=== PATIENT | male | born 1945 | race Caucasian/White ===

== ENCOUNTER 2021-03-21 23:50 | Inpatient (IN) | payer OTHER ==
[~2021-03-21] VITALS: Ht 175.3 cm; Wt 74.1 kg
[2021-03-21 23:51] VITALS: BP 132/77
[2021-03-22] MEDS ORDERED: ALBUTEROL INHALER (00:03)
[2021-03-22] MEDS ORDERED: ZESTRIL5 MG PO (00:05)
[2021-03-22] MEDS ORDERED: BENADRYL25 MG PO (00:05)
[2021-03-22] MEDS ORDERED: METFORMIN PO (00:05)
[2021-03-22] MEDS ORDERED: PREVACID30 MG PO (00:06)
[2021-03-22] MEDS ORDERED: LOPRESSOR50 MG PO (00:06)
[2021-03-22] MEDS ORDERED: TRELEGY ELLIPT1 EACH INH (00:07)
[2021-03-22] MEDS ORDERED: ACETAMINOPHEN325 MG PO (00:07)
[2021-03-22] MEDS ORDERED: ULTRAM50 MG PO (00:07)
[2021-03-22 00:22] LABS: ABSOLUTE NEUTROPHILS 15.5 thou/uL (1.4-8.2); BASOPHILS 1.2 % (0.0-2.0); EOSINOPHILS 1.3 % (0.0-3.0); HEMATOCRIT 44.8 % (42.0-52.0); HEMOGLOBIN 14.9 gm/dL (14.0-18.0); LYMPHOCYTES 9.6 % (24.0-44.0); MCH 31.5 pg (26.0-34.0); MCHC 33.3 g/dL (28.0-37.0); MCV 94.8 fL (80.0-100.0); MONOCYTES 8.5 % (1.0-8.0); PLATELET COUNT 307 thou/uL (150-400); POLYS 79.4 % (36.0-66.0); RBC 4.73 mil/uL (4.50-6.00); RDW 15.2 % (10.5-14.5); WBC 19.5 thou/uL (4.0-11.0)
[2021-03-22 00:25] LABS: CREATININE 1.1 mg/dL (0.7-1.3); POTASSIUM 4.6 mmol/L (3.5-5.1)
[2021-03-22] MEDS ORDERED: METFORMIN HCL500 M3 PO (01:45)
[2021-03-22] MEDS ORDERED: ALBUTEROL2.5 MG/3 M INH (01:46)
[2021-03-22] MEDS ORDERED: PROAIR HFA8.5 GM INH (01:46)
[2021-03-22] MEDS ORDERED: METHOTREXATE 22.5 M1 PO (01:47)
[2021-03-22 02:52] VITALS: BP 130/61
[2021-03-22 03:20] VITALS: BP 115/66
[2021-03-22 05:55] LABS: HEMATOCRIT 39.6 % (42.0-52.0); HEMOGLOBIN 13.8 gm/dL (14.0-18.0); MCH 32.9 pg (26.0-34.0); MCHC 34.8 g/dL (28.0-37.0); MCV 94.7 fL (80.0-100.0); RBC 4.18 mil/uL (4.50-6.00); RDW 14.8 % (10.5-14.5); WBC 19.1 thou/uL (4.0-11.0)
[2021-03-22 06:15] LABS: CALCIUM 8.2 mg/dL (8.5-10.1); CREATININE 1.1 mg/dL (0.7-1.3); POTASSIUM 4.5 mmol/L (3.5-5.1)
--- NOTE | 2021-03-22 06:26 | NUR ---
PT WAS ADMITTED TO THE UNIT FROM THE ER IN A STABLE CONDITION.PT ALERT, INPATIENT AND GRUMPY ON ADMIT.ADMISSION HX,EDUCATION AND ASSESSMENT COMPLETED.PT UP TO THE TOILET WITH SBA,SOB WITH EXERTION NOTED.PT [place],HAS MARIELY HEARING AID IN PLACE.PT EDUCATED TO USE THE URINAL AT BEDSIDE.PT ON IVF AND IV ABX.CALL LIGHT WITHIN REACH.
[2021-03-22 07:40] VITALS: BP 105/50
--- NOTE | 2021-03-22 10:45 | NUR ---
Assumed care of pt at 0700. Pt a&ox4. IVF and IV antibiotics infusing. 2L O2. SBA to the toilet. Lung sounds diminished. Denies pain. SOB with activity. Call light within reach. Fall precautions in place. Will continue to monitor.
[2021-03-22 16:40] VITALS: BP 110/56
[2021-03-22 21:20] VITALS: BP 105/59
--- NOTE | 2021-03-23 04:17 | NUR ---
ASSUMED PT CARE AT 1900.PT DENIED PAIN SO FAR.PT UP WITH ASSIST/CANE TO THE TOILET,SOB NOTED.PT ON 2LNC.PT ENCOURAGED TO USE HIS INCENTIVE SPIROMETER.PT [place],BILHEARING AID IN PLACE.PT ABLE TO MAKE HIS NEEDS KNOWN.CALL LIGHT WITHIN REACH.
--- NOTE | 2021-03-23 08:16 | EKG ---
[address] [place] [address] ELECTROCARDIOGRAM REPORT Name: ANIBAL BANDA Room #: 444-P ADM IN M.R.#: [id number] Admission: 03/22/21 Attend Phys: Carlos Latham MD Discharge: Date of : 49 Report #: [id number] [facility] ED Test Date: 2021-03-22 Test Time: 00:35:37 Pat Name: ANIBAL BANDA Department: Room: 444 Gender: M Frit Maker: ortiz lezama : 1945 Requested By: Zain Leach Order Number: [id number] MD: Alberto Mello Measurements Intervals [place] Rate: 107 P: 58 AR: 119 QRS: 60 QRSD: 93 T: 247 QT: 299 QTc: 399 Interpretive Statements Sinus tachycardia Borderline repol abnormality, diffuse leads No previous ECG available for comparison Electronically Signed On 03-23-2021 8:16:34 CDT by Alberto Mello [email or web address] <ELECTRONICALLY SIGNED> By: Alberto Mello MD, [facility] 03/23/21 0816 0035 0035 Alberto Mello MD, FACC /EPI
[2021-03-23 08:47] VITALS: BP 132/66
--- NOTE | 2021-03-23 10:43 | NUR ---
Assumed care of pt at 0700. Pt a&ox4. Denies pain. Dimished lung sounds. IV antibiotics infusing. SBA to the toilet. SOA w/activity. 2L O2. Call light within reach. Pt calls appropriately. Will continue to monitr.
[2021-03-23 19:13] VITALS: BP 134/65
--- NOTE | 2021-03-23 22:22 | NUR ---
ASSUMED CARE OF PT AT 1915. PT IS A&OX4. IS ON 2L OF O2/NC INTERMITTENT NEEDED. HAS SOB WITH EXERTION. PT DENIES CHEST PAIN OR GERNARALIZED. IS STABLE. CONTINUES ON IV STEROIDS & ABT. IS UP WITH STANDBY ASSIST, GB, CANE. PT HAS STEADY GAIT. FALL PRECAUTIONS & HOURLY ROUNDING CONTINUED THIS SHIFT. LABS & VITALS REVIEWED. PT IS CURRENTLY ASLEEP. CALL LIGHT WITHIN REACH. WILL CONTINUE TO MONITOR.
[2021-03-24 04:13] VITALS: BP 117/75
[2021-03-24 06:43] LABS: ABSOLUTE NEUTROPHILS 12.3 thou/uL (1.4-8.2); BASOPHILS 0.1 % (0.0-2.0); HEMATOCRIT 35.9 % (42.0-52.0); HEMOGLOBIN 12.3 gm/dL (14.0-18.0); MCH 32.4 pg (26.0-34.0); MCHC 34.2 g/dL (28.0-37.0); MCV 94.6 fL (80.0-100.0); PLATELET COUNT 235 thou/uL (150-400); POLYS 90.9 % (36.0-66.0); WBC 13.6 thou/uL (4.0-11.0)
[2021-03-24 07:50] VITALS: BP 122/66
--- NOTE | 2021-03-24 09:27 | NUR ---
Assumed care of pt at 0700. Pt a&ox4. Denies pain. IV antibiotic infusing. Will try to wean off O2 if saturation above 92%. Call light within reach. Will continue to monitor.
[2021-03-24 15:30] VITALS: BP 137/70
--- NOTE | 2021-03-24 17:20 | NUR ---
Chart reviewed and case discussed with the care team. Pt comes from home with his . He is normally indep using a cane. His pcp is Dr. Zackery Ramirez. He has health ins in place for f/u care. The pt is up with sba and his cane with steady gait. He is being treated for pneumonia/copd exac and weaning off o2. Likely dc 1-2 days with outpt followup. cm will follow along should dc needs arise.
[2021-03-24 20:43] VITALS: BP 146/71
--- NOTE | 2021-03-25 00:30 | NUR ---
PT ALERT AND ORIENTED X 4. UP AD AIDAN IN ROOM. PT STATES HE IS COUGHING UP GREEN SPUTUM. NONE OBSERVED BY NURSE. PT DENIES PAIN OR DISCOMFORT. PT APPEARS TO BE SLEEPING ON HOURLY ROUNDS.
[2021-03-25 01:55] LABS: HEMATOCRIT 36.2 % (42.0-52.0); HEMOGLOBIN 12.6 gm/dL (14.0-18.0); MCHC 34.9 g/dL (28.0-37.0); MCV 94.7 fL (80.0-100.0); RBC 3.82 mil/uL (4.50-6.00); WBC 10.9 thou/uL (4.0-11.0)
[2021-03-25 02:01] LABS: CALCIUM 8.7 mg/dL (8.5-10.1); CREATININE 1.1 mg/dL (0.7-1.3); POTASSIUM 4.3 mmol/L (3.5-5.1)
[2021-03-25 07:57] VITALS: BP 142/69
--- NOTE | 2021-03-25 11:56 | NUR ---
ASSUMED PT CARE AROUND 07. PT ALERT X ORIENTED X 4. 2L/O2/PRN DEPENDING ON PT COMFORT. PER DR. OJEDA'S ORDER, WEANING PT FROM 2L/O2 SINCE 10 AM.UP X AD X AIDAN.HARD OF HEARING. IV LEFT FA/SL. ON CARB CONTROL DIABETIC DIET. FALL PRECAUTION IN PLACE. CALL LIGHT IN REACH. WILL CONTINUE TO MONITOR.
--- NOTE | 2021-03-25 14:00 | NUR ---
Case discussed with the care team and with the pt/spouse at bedside. Pt weaning off o2 today with hopes of dcing home tomorrow. Spouse can pick him up tomorrow but lives one hour away. Pt is up ad rafiq and indep with a cane. No cm interventions indicated. Likely dc home tomorrow.
[2021-03-25 19:48] VITALS: BP 154/78
--- NOTE | 2021-03-26 03:10 | NUR ---
ASSUMED CARE OF PT AT 1900. BEDSIDE REPORT RECIEVED. AUBREY ASSESSMENT COMPLETE. PTS LUNGS COARSE AND DIMINISHED IN BASES. PT DENIES ANY PAIN, DYSPNEA, SOB, OR DISCOMFORT AT THIS TIME. MEDS ADMINSITERED PER SEP. PT UP ADLIB C BRP. L FA PIV PATENT AND SECURE C TRANSPARENT DRESSING. EMPTIED URINAL C LIGHT YELLOW URINE. GOT PT NEW ICE WATER. PT DENIES ANY OTHER NEEDS AT THIS TIME. CALL LIGHT IN REACH.
[2021-03-26 08:18] VITALS: BP 152/84
[2021-03-26] MEDS ORDERED: PREDNISONE 10 M10 M1 PO (10:58)
[2021-03-26] MEDS ORDERED: CEFDINIR300 MG PO (10:58)
[2021-03-26 12:04] VITALS: BP 152/84
== END 2021-03-26 14:48 | disposition home or self-care (01) | DRG 871 ==
LOC: ER 23:50 → 4S 03-22 02:37 → EROBS 03-22 02:37 → 4S 03-22 03:03
PROVIDERS: Hospitalist; Nurse Practitioner Family; Student in an Organized Health Care Education/Training Program; ADMIT Internal Medicine; ATTEND Internal Medicine
DX: A41.9 Sepsis, unspecified organism (principal); J18.9 Pneumonia, unspecified organism; J96.21 Acute and chronic respiratory failure with hypoxia; J44.0 Chronic obstructive pulmonary disease with (acute) lower respiratory infection; Z20.822 Contact with and (suspected) exposure to COVID-19; E11.9 Type 2 diabetes mellitus without complications; E78.5 Hyperlipidemia, unspecified; I10 Essential (primary) hypertension; K21.9 Gastro-esophageal reflux disease without esophagitis; Z79.899 Other long term (current) drug therapy; Z87.891 Personal history of nicotine dependence
CPT/HCPCS: 10195